=== PATIENT | male | born 1960 | race Caucasian/White ===

== ENCOUNTER → 2023-05-26 | Outpatient (CLI) | payer OTHER, MEDICAID | LOC: M CARPUL 11:35 | PROVIDERS: ATTEND Nurse Practitioner Family | DX: R06.02 Shortness of breath (principal) ==

== ENCOUNTER → 2023-06-23 | Outpatient (CLI) | payer OTHER, MEDICAID | LOC: M LAB 12:25 | PROVIDERS: ATTEND Nurse Practitioner Family | DX: R91.8 Other nonspecific abnormal finding of lung field (principal) ==

== ENCOUNTER → 2023-06-28 | Outpatient (CLI) | payer OTHER, MEDICAID ==
[2023-06-28 10:23] LABS: PLATELET COUNT, AUTOMATED 312 10^3/uL (150-450)
[2023-06-28 10:31] LABS: ERYTHROCYTE SEDIMENTATION RATE 46 mm/hr (0-20)
[2023-06-28 10:35] LABS: INR 1.07; PROTHROMBIN TIME 13.6 SECONDS (12.5-14.5)
[2023-06-28 10:36] LABS: PARTIAL THROMBOPLASTIN TIME 30.2 SECONDS (24.8-34.2)
[2023-06-28 10:53] LABS: C REACTIVE PROTEIN QUANTITATIV 1.2 MG/DL (<1.0)
[2023-06-28 10:54] LABS: BILIRUBIN,DIRECT 0.1 MG/DL (<0.4); BILIRUBIN,TOTAL 0.3 MG/DL (0.3-1.2); TOTAL PROTEIN 7.1 G/DL (5.7-8.2)
== END ==
LOC: M LAB 09:22
PROVIDERS: ATTEND Nurse Practitioner Family
DX: R05.9 Cough, unspecified (principal); Z79.01 Long term (current) use of anticoagulants

== ENCOUNTER → 2023-07-26 | Outpatient (CLI) | payer OTHER, MEDICAID ==
[~2023-07-26] MED LIST: LIDOCAINE 1% MDV 20ML VIAL As Ordered ONE
[2023-07-26 08:39] VITALS: TEMP 97.2
[2023-07-26 11:30] VITALS: BP 135/79; O2SAT 97
== END ==
LOC: M IRPRO 08:26
PROVIDERS: ATTEND Nurse Practitioner Family
DX: R91.1 Solitary pulmonary nodule (principal)

== ENCOUNTER → 2023-09-19 | Outpatient (CLI) | payer OTHER, MEDICAID ==
[~2023-09-19] MED LIST changes: -LIDOCAINE 1% MDV 20ML VIAL As Ordered ONE; +PROHANCE 279.3MG/ML 15ML VIAL ONE; +PROHANCE 279.3MG/ML 5ML VIAL ONE
== END ==
LOC: M PLAIMG 09:23
DX: J98.4 Other disorders of lung (principal)
CPT/HCPCS: 70553; A9576

== ENCOUNTER → 2023-10-12 | Outpatient (CLI) | payer OTHER, MEDICAID ==
[~2023-10-12] MED LIST changes: +ISOVUE-370 76% 100ML VIAL ONE; -PROHANCE 279.3MG/ML 15ML VIAL ONE; -PROHANCE 279.3MG/ML 5ML VIAL ONE
== END ==
LOC: M PLAIMG 08:06
DX: J98.4 Other disorders of lung (principal)
CPT/HCPCS: 71260; Q9967